=== PATIENT | female | born 1935 | race Caucasian/White ===

== ENCOUNTER 2023-05-21 09:28 | Outpatient (CLI) | payer OTHER, SELFPAY ==
--- NOTE | 2023-05-24 09:31 | WPDNEUROLOGY ---
Neurology EEG Report General Information Date of Study: 05/21/23 TEST Routine EEG DIAGNOSIS Abnormal involuntary movement CONDITION OF RECORDING Awake, drowsy, asleep EEG NUMBER [id number] CLINICAL HISTORY Patient reports she is having an issue with her right eye wanting to close at the time. Denies any confusion or loss of consciousness. EEG DESCRIPTION During the awake state with eyes closed the background consists of 8 Hz posterior dominant rhythm which attenuates appropriately with eye opening. The recording is continuous. There is a well developed anterior-posterior gradient. No significant asymmetries of background activities are noted. With drowsiness there is waxing and waning of the dominant rhythm with eventual replacement by a mixture of beta, alpha, and theta activity. As the patient enters stage II sleep, symmetrical spindles are present. Arousal is unremarkable. There are no epileptiform discharges or seizures during this recording. Photic stimulation did not elicit any abnormal photoparoxysmal response. IMPRESSION This is a normal routine EEG recorded in awake and asleep states. There are no electrographic seizures identified, nor are there any epileptiform discharges. Please note that a normal EEG cannot exclude a seizure disorder. Clinical correlation is recommended.
== END 2023-05-21 09:29 | disposition home or self-care (01) ==
LOC: ANHIMG 09:44
PROVIDERS: Visit Provider Psychiatry & Neurology Neurology
DX: R41.9 Unspecified symptoms and signs involving cognitive functions and awareness (principal)
CPT/HCPCS: 95816

== ENCOUNTER 2023-11-18 13:07 | Emergency (ER) | payer OTHER, SELFPAY ==
--- NOTE | ~2023-11-18 | CT_ITS ---
. EXAMINATION: CT abdomen pelvis w con DATE: 11/18/2023 16:30 INDICATION: Chronic back pain, right pelvic pain. TECHNIQUE: Computed tomography (CT) of the abdomen and pelvis was performed with 100 CC Omnipaque 350 intravenous contrast. Automated exposure control and iterative reconstruction technique were employe d. Exam dose: 1155.49 mGy-cm total exam DLP. COMPARISON: None. FINDINGS: Minimal atelectasis and/or scarring at the lung bases. Cardiomegaly. Right atrial and right ventricular pacemaker leads. Diffuse hepatic steatosis. No hepatic space-occupying mass lesion is evident. There is mild thickening of the gallbladder wall, which measures up to 4 mm. Mild pericholecystic fat stranding. Acute or chronic cholecystitis are not excluded. No bile duct or pancreatic duct dilatati on. No pancreatic mass lesion or calcification is detected. Normal splenic size. Normal morphology of the adrenal glands. No renal mass lesion or urinary tract calculus or hydroureteronephrosis is evident. There is prominent distention of the urinary bladder. No bladder wall thickening or intraluminal blad kristyn lesion is evident. Status post hysterectomy. There is atherosclerotic calcification of the abdominal aorta and branches but no abdominal aortic an eurysm. No intraperitoneal or retroperitoneal or pelvic mass lesion or adenopathy or ascites. Mild sigmoid colon diverticulosis; no CT evidence of diverticulitis. As a prominent of fecal material in the colon but no bowel obstruction. No evidence of appendicitis. Supraumbilical right parasagittal fat-containing abdominal wall hernia. Larger right periumbilical wi demouth hernia containing small bowel and fat, without strangulation or obstruction. Small right parasagittal infraumbilical fat-containing hernia. Larger midline fat and small bowel containing infraumbilical anterior abdominal wall hernia. There is nonspecific asymmetric mild edema of the left proximal thigh. Advanced healing of anterolateral left fifth and sixth rib fractures. Degenerative spurring of the lo wer thoracic spine. Grade 1 anterolisthesis at L3-4 and L4-5 due to degenerative change at the apophyseal joints. Multile vinay degenerative disc disease, most severe at L5-S1, with associated mild retrolisthesis. Degenerative changes at the sacroiliac and hip joints. Osteopenia. IMPRESSION: Multiple ventral abdominal wall hernias including 2 containing nonobstructed nonstrangul ated small bowel Cardiomegaly, right atrial and ventricular pacemaker leads lying hepatic steatosis Mild thickening of the gallbladder wall, suggesting chronic cholecystitis. Acute cholecystitis is les s likely. Clinical correlation is advised. Gallbladder ultrasound may be of benefit as clinically kym ropriate. Status post hysterectomy Mild sigmoid colon diverticulosis; no evidence of diverticulitis Reviewed, dictated and finalized at [facility]. Reviewed, dictated and finalized at [facility]. IMPRESSION: Multiple ventral abdominal wall hernias including 2 containing non obstructed nonstrangulated small bowel Cardiomegaly, right atrial and ventricular pacemaker leads lying hepatic steato sis Mild thickening of the gallbladder wall, suggesting chronic cholecystitis. Acut e cholecystitis is less likely. Clinical correlation is advised. Gallbladder ul trasound may be of benefit as clinically appropriate. Status post hysterectomy Mild sigmoid colon diverticulosis; no evidence of diverticulitis
--- NOTE | ~2023-11-18 | US_ITS ---
EXAMINATION: US venous doppler LE RT DATE: 11/18/2023 15:31 INDICATION: Right lower limb pain TECHNIQUE: Puente scale images without and with compression and Doppler images of the right lower extre mity veins were obtained. COMPARISON: None FINDINGS: The right common femoral vein, profunda femoral vein, femoral vein, popliteal vein, peronea l trunk, posterior tibial veins, and greater saphenous vein are patent. IMPRESSION: 1. Patent right lower extremity veins. No evidence of deep venous thrombosis. Reviewed, dictated and finalized at [facility].
[2023-11-18 13:12] VITALS: BP 95/49; PULSE 60; RESP 14; TEMP 36.4; O2SAT 95
--- NOTE | 2023-11-18 13:24 | PC.NURSE ---
Fentanyl patch removed by this RN
--- NOTE | 2023-11-18 13:47 | ED.GENADULT ---
HPI - General Adult General Chief complaint: Back Pain/Injury Stated complaint: back pain, bilateral leg pain Time Seen by Provider: 11/18/23 13:25 History of Present Illness HPI narrative: 88-year-old female presenting to the emergency department for evaluation of right hip pain. Patient was recently evaluated at [facility] and was found to have a possible hematoma within the iliopsoas musculature. Patient was admitted to a local jail. Patient was still having increased pain at the right hip and family wanted her evaluated. Upon arrival emergency department patient was mildly sedated due to the fentanyl patch and does and is seen. Patient is alert and orientated to verbal stimuli. Patient does complain of right leg pain worsened with active movement. Related Data Home Medications Medication Instructions Recorded Confirmed apixaban 5 mg tablet (Eliquis) 5 mg PO BID 11/17/23 11/17/23 furosemide 40 mg tablet (Lasix) 40 mg PO QAM 11/17/23 11/17/23 gabapentin 100 mg capsule 100 mg PO TID 11/17/23 11/17/23 lisinopril 5 mg tablet 5 mg PO DAILY 11/17/23 11/17/23 methimazole 5 mg tablet 5 mg PO DAILY 11/17/23 11/17/23 Allergies Allergy/AdvReac Type Severity Reaction Status Date / Time Sulfa (Sulfonamide Allergy Unknown Verified 12/12/08 15:48 Antibiotics) 1 MACRODANTIN 2 SULFA 3 Allergy Unknown Uncoded 02/20/03 15:13 DEMEROL NKFA Allergy Unknown Uncoded 02/20/03 15:13 NITROFURANTOIN (Generic Allergy Y Uncoded 02/20/03 15:52 Allergy) SULFAMETHOXAZOLE (Generic Allergy Y Uncoded 02/20/03 15:52 Allergy) Review of Systems Review of Systems: All systems reviewed & are unremarkable except as noted in HPI and below PMFSH Social History Social History Smoking status: Never smoker Exam Narrative: APPEARANCE: Well appearing, no pain, no distress, well-nourished. HEAD: normocephalic, atraumatic. EYES: PERRLA/EOMI, conjunctivae clear. NOSE: Normal no drainage EARS:TMS clear with good light reflex. THROAT: Pharynx clear, no exudate. NECK: Supple. No adenopathy, no masses. RESPIRATORY: Airway patent, respirations nonlabored. Clear to auscultation bilaterally, no rales, rhonchi, wheezing. CARDIOVASCULAR: Regular rate and rhythm without murmurs rubs or gallops. ABDOMINAL: Soft, nontender, nondistended, normal bowel sounds MUSCULOSKELETAL: Tenderness to right hip with active but not much with passive range of motion of the right hip. No tenderness to palpation of the hip or femur. NEURO: Alert. Cranial nerves II through XII intact. Good gait. Good coordination SKIN: Warm, dry. Normal Color Course Course Emergency Course: patient was discharged back to her care facility in stable condition. Vital Signs Vital signs: Vital Signs Temperature 97.6 F 11/18/23 13:12 Pulse Rate 60 11/18/23 13:12 Respiratory Rate 14 11/18/23 13:12 Blood Pressure 95/49 L 11/18/23 13:12 Pulse Oximetry 95 11/18/23 13:12 Oxygen Delivery Room Air 11/18/23 13:12 Temperature 97.6 F 11/18/23 13:12 Pulse Rate 60 11/18/23 17:27 Respiratory Rate 12 11/18/23 17:27 Blood Pressure 143/78 H 11/18/23 17:27 Pulse Oximetry 97 11/18/23 17:27 Oxygen Delivery Room Air 11/18/23 13:12 Medical Decision Making MDM Narrative Medical decision making narrative: 88-year-old female presented emergency department for evaluation chronic right leg pain. Patient is afebrile with no leukocytosis and hemoglobin of 10.3. Patient does have a mild hyponatremia of 127 but family states this is not new for her. Patient has no elevation in AST ALT or alk-phos. CT scan showed no acute abnormalities to explain the patient's pain. Ultrasound was negative. Patient and family were updated the results of the workup and patient will be discharged back to her care facility. Patient has had this pain previously and has had follow-up with pain management. Patient was recommended to have outpatient follow-
[2023-11-18 15:50] LABS: Basophils Percent Auto 0.3 % (0.2-1.2); Eosinophils Absolute Auto 0.3 K/mm3 (0-0.3); Eosinophils Percent Auto 4.5 % (0-4.4); Hematocrit 32.5 % (37.0-47.0); Hemoglobin 10.3 g/dL (12.0-15.0); Immature Granulocyte Absolute 0.02 K/mm3 (0.00-0.031); Immature Granulocyte Percent A 0.3 % (0-0.5); Lymphocytes Percent Auto 12.3 % (18.3-44.2); Mean Corpuscular HGB Conc 31.7 g/dl (32-36); Mean Corpuscular Volume 91.5 fl (80-100); Mean Platelet Volume 11.8 fl (7.4-10.4); Monocytes Absolute Auto 1.2 K/mm3 (0.1-0.6); Neutrophils Absolute Auto 4.8 K/mm3 (1.3-6.7); Neutrophils Percent Auto 65.6 % (45.5-73.1); Platelet Count Result 126 k/mm3 (150-375); Red Blood Count 3.55 M/mm3 (4.2-5.4); Red Cell Distribution Width 16.7 % (11.5-14.5); White Blood Count 7.3 K/mm3 (4.5-10.0)
[2023-11-18 16:01] LABS: Alanine Aminotransferase 21 U/L (6-35); Albumin Level 3.5 g/dL (3.5-5.1); Alkaline Phosphatase 120 U/L (38-126); Anion Gap 4 mmol/L (8-16); Aspartate Amino Transferase 32 U/L (14-36); Bilirubin,Total 1.8 mg/dL (0.2-1.3); Blood Urea Nitrogen 37 mg/dL (7-17); Calcium 8.9 mg/dL (8.4-10.2); Carbon Dioxide 27 mmol/L (22-30); Chloride 96 mmol/L (98-107); Estimated CRCL calculation 35 ml/min; Estimated Glomerular Filt Rate 59; Glucose 106 mg/dL (65-110); INR 1.2; Potassium 4.9 mmol/L (3.4-5.0); Prothrombin Time 15.3 Seconds (11.1-14.7); Sodium 127 mmol/L (137-145)
[2023-11-18 16:02] LABS: Partial Thromboplastin Time 36.9 Seconds (22.3-36.8)
--- NOTE | 2023-11-18 16:33 | PC.NURSE ---
Pt reports increased pain after CT. MD made aware. VORB for one 5-325 norco PO.
[2023-11-18 16:34] VITALS: BP 140/75; PULSE 60; RESP 20; O2SAT 100
[2023-11-18] MEDS: HYDROcodone/acetaminophen (*CRX) 5-325 MG TABLET 1 TAB PO (16:39)
[2023-11-18 17:27] VITALS: BP 143/78; PULSE 60; RESP 12; O2SAT 97
--- NOTE | 2023-11-18 18:31 | PC.NURSE ---
Pt family member verbally upset about pt not meeting requirements for patient to have ambulance ride back to facility under coverage. Pt daughter educated and de-escalation attempted. Pt daughter continues to express frustration at this RN and charge entry clerk sent into room to further explain.
== END 2023-11-18 18:09 ==
PROVIDERS: Emergency Provider Emergency Medicine
DX: M25.551 Pain in right hip (principal); M79.604 Pain in right leg; Z79.01 Long term (current) use of anticoagulants; K43.9 Ventral hernia without obstruction or gangrene; I51.7 Cardiomegaly; Z95.0 Presence of cardiac pacemaker; K76.0 Fatty (change of) liver, not elsewhere classified; R93.2 Abnormal findings on diagnostic imaging of liver and biliary tract; Z90.710 Acquired absence of both cervix and uterus; K57.30 Diverticulosis of large intestine without perforation or abscess without bleeding
CPT/HCPCS: 36415; 74177; 80053; 85025; 85610; 85730; 93971; 99284; A9270; Q9967